=== PATIENT | female | born 1990 | race Caucasian/White ===

== ENCOUNTER 2018-02-06 06:23 | Inpatient (IN) | payer BC, MEDICAID ==
[~2018-02-06] VITALS: Ht 149.9 cm; Wt 87.1 kg
[2018-02-06] MEDS ORDERED: MORPHINE SULFATE 4 MG/ML CPJ (NOT FOR IM USE) IV STA (06:58)
[2018-02-06] MEDS ORDERED: MAGNESIUM/ALUMINUM HYDROXIDE/SIMETHICONE 30ML UDC PO STA ×2 (06:58→10:52)
[2018-02-06] MEDS ORDERED: FAMOTIDINE 20MG/2ML VIAL IV STA (06:58)
[2018-02-06] MEDS ORDERED: ONDANSETRON HCL 4MG/2ML INJ IV STA (06:58)
[2018-02-06] MEDS ORDERED: SODIUM CHLORIDE 0.9% 1,000 ML IV ONE (06:58)
[2018-02-06 07:34] LABS: BASOPHILS % 0.2 % (0.0-2.0); EOSINOPHILS % 1.2 % (0.0-5.0); HEMOGLOBIN. 12.4 g/dL (12.0-16.0); LYMPHOCYTES % 20.9 % (20.0-50.0); MEAN CORPUSCULAR HEMOGLOBIN 27.1 pg (28.0-32.0); MEAN CORPUSCULAR VOLUME 80.9 fL (81.0-99.0); MEAN PLATELET VOLUME 9.6 fl (7.4-10.4); NEUTROPHILS % 72.7 % (40.0-76.0); PLATELET 152 x1000/uL (130-400); RED BLOOD CELL COUNT 4.58 mill/uL (4.2-5.4); RED CELL DISTRIBUTION WIDTH 13.3 % (11.6-14.6)
[2018-02-06 07:40] LABS: PROTHROMBIN TIME 9.9 sec (9.1-11.1)
[2018-02-06 07:43] LABS: CHLORIDE 108 mEq/L (98-107)
[2018-02-06 07:52] LABS: ETHANOL BLOOD < 10 mg/dL
[2018-02-06 08:05] LABS: B-HCG QUANTITATIVE 48467 mIU/mL (<3)
[2018-02-06] MEDS ORDERED: BUTORPHANOL TARTRATE 2 MG/ML VIAL IM PRN (09:15)
[2018-02-06 10:29] LABS: CLARITY URINE CLOUDY (CLEAR); COLOR URINE DARK YELLOW (YELLOW); KETONES URINE TRACE (NEGATIVE); LEUKOCYTE ESTERASE URINE NEGATIVE (NEGATIVE); NITRITE URINE NEGATIVE (NEGATIVE); OCCULT BLOOD URINE NEGATIVE (NEGATIVE); PH URINE 5.5 (4.5-8.0); PROTEIN URINE 1+ (NEGATIVE); SPECIFIC GRAVITY URINE 1.043 (1.005-1.030)
[2018-02-06] MEDS ORDERED: DICYCLOMINE 10 MG/5 ML ORAL SYR PO STA (10:52)
[2018-02-06] MEDS ORDERED: VISCOUS LIDOCAINE 2% 15 ML UDC PO STA (10:52)
[2018-02-06] MEDS ORDERED: ONDANSETRON HCL 4MG/2ML INJ IV ONE (11:00)
[2018-02-06] MEDS ORDERED: MORPHINE SULFATE 4 MG/ML CPJ (NOT FOR IM USE) IV ONE (11:00)
[2018-02-06] MEDS ORDERED: ONDANSETRON HCL 4MG/2ML INJ IV PRN (13:15)
[2018-02-06] MEDS ORDERED: ACETAMINOPHEN 650MG SUPP PR PRN (13:15)
[2018-02-06] MEDS ORDERED: DIPHENHYDRAMINE 50MG/ML VIAL IV PRN (13:15)
[2018-02-06] MEDS ORDERED: MVI, ADULT NO.1 10 ML, FOLIC ACID 1 MG, THIAMINE HCL 100 MG in SODIUM CHLORIDE 0.9% 1,0... IV NR ×4 (13:30)
[2018-02-06 14:46] LABS: T4 FREE 1.13 ng/dL (0.76-1.46)
[2018-02-06 15:27] LABS: HEPATITIS B SURFACE ANTIGEN NEGATIVE
[2018-02-06 15:56] LABS: HEPATITIS B CORE AB IGM NEGATIVE
[2018-02-06 15:57] LABS: HEPATITIS A AB IGM NEGATIVE (NEGATIVE)
[2018-02-06 17:00] VITALS: BP 103/48
[2018-02-06] MEDS ORDERED: METOCLOPRAMIDE HCL 10MG/2ML VIAL IV ONE (17:00)
[2018-02-06] MEDS ORDERED: INFLUENZA VIRUS VACCINE(AFLURIA) 0.5ML SYR IM ONE (17:30)
[2018-02-06 20:00] VITALS: BP 121/69
[2018-02-06] MEDS: ACETAMINOPHEN 325MG TABLET PO PRN (22:08)
[2018-02-07] VITALS (7 sets, daily range): BP systolic 100–128; BP diastolic 46–79
[2018-02-07] MEDS ORDERED: INFLUENZA VIRUS VACCINE(AFLURIA) 0.5ML SYR IM ONE (10:00)
[2018-02-07] MEDS: ACETAMINOPHEN 325MG TABLET PO PRN (16:36)
[2018-02-09] MEDS ORDERED: PYRIDOXINE 100 MG/ML 1ML IM SCH (09:00)
== END 2018-02-07 20:05 | disposition home or self-care (01) | DRG 833 ==
LOC: ER 06:23 → 6EST 12:28 → CANBEDREQ 13:33 → ENRESERV 13:43 → 6EST 17:08
PROVIDERS: ADMIT Specialist; ATTEND Specialist
DX: O21.0 Mild hyperemesis gravidarum (principal); Z3A.15 15 weeks gestation of pregnancy; R16.1 Splenomegaly, not elsewhere classified; O26.892 Other specified pregnancy related conditions, second trimester; Z98.891 History of uterine scar from previous surgery; Z88.0 Allergy status to penicillin
CPT/HCPCS: 36415; 72195; 74181; 76700; 76805; 84439; 84443; 84484; 84702; 86592; 86703; 86705; 86709; 86762; 86803; 86850; 86870; 86900; 87340; 90686; 93005; 96361; 96372; 96374; 96375; 99285; G0482; J0595; J2270; J2405; J3411; J3490; J7030